=== PATIENT | male | born 1955 | race Caucasian/White ===

== ENCOUNTER 2016-11-07 16:35 | Emergency (ER) | payer OTHER ==
[~2016-11-07] VITALS: Ht 177.8 cm; Wt 65.8 kg
[~2016-11-07 16:35] MED LIST: BENTYL 20 MG TA20 MG PO; CHANTIX 1 MG1 MG PO; DILAUDID2 MG PO; FIORICET 325 MG1 TAB PO; FOLIC ACID 1 MG PO; LEVSIN/SL0.125 MG SL; NORCO 325 MG-51 TAB PO; NORVASC 10MG10 MG PO; PROTONIX 40MG T40 MG PO; TOPROL XL25 MG PO; TYLENOL TAB 32325 MG PO; TYLENOL XSTR500 MG PO; Theragran Vitamins PO; VICODIN 500 MG-1 TAB PO; VITAMIN B1100 MG PO; ZOFRAN 4 MG TABL4 MG PO; ZOFRAN ODT4 MG PO; ZOFRAN4 M1 SL
--- NOTE | 2016-11-07 16:53 | ED GI/GU/ABDOMINAL COMPLAINT ---
See Addendum History of Present Illness General Chief Complaint: Abdominal Pain/Flank Pain Stated Complaint: ABD PAIN, +N/V, CHILLS Source: patient Exam Limitations: no limitations Vital Signs & Intake/Output Vital Signs & Intake/Output Vital Signs Date Time Temp Pulse Resp B/P Pulse O2 O2 Flow FiO2 Ox Delivery Rate 11/08 1927 98.7 84 18 120/84 97 Room Air 11/07 1638 98.5 64 18 185/95 100 Room Air Allergies Coded Allergies: NO KNOWN ALLERGIES (05/20/11) Reconcile Medications Hydrocodone/Acetaminophen (Hydrocodon-Acetaminophen 5-325) 5 MG-325 MG TABLET 1-2 TAB PO Q4-6 PRN PRN pain Ondansetron (Zofran Odt) 4 MG TAB.RAPDIS 1 TAB SL TID PRN nausea and vomiting Tramadol HCl 50 MG TABLET 1 TAB PO BIDP PRN pain Triage Note: 61 YEAR OLD MALE HISTORY OF CELIAC AND DIVERTICULITIS STATES THAT HE WOKE THIS AM WITH N/V/D AND EXTREME ABD PAIN, PAIN IS MID ABD. HAS NOT HAD N/V/D SINCE THIS AM , BUT STATES THAT THERE WAS BLOOD IN STOOL THIS AM Triage Nurses Notes Reviewed? yes HPI: This patient is a 61-year-old male with a past medical history including celiac disease who presented to the emergency department with his for evaluation of abdominal pain. The patient reported that around 9:30 this morning he began developing mid lower abdominal pain which gets up to 9 out of 10, is constant, and nonradiating. The pain has no provoking or palliative factors. He vomited "many times" today. He reported 2 episodes of diarrhea with blood in the stool. He reported associated nausea. He denied any fevers, chills, chest pain or breathing, back pain, or any urinary burning, urgency, frequency, or blood in the urine. (MARTELL DHALIWAL,AGNES) Past History Travel History Traveled to [place] past 21 day No Medical History Any Pertinent Medical History? 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 No (AGNES MOURA PA-C) Review of Systems Review of Systems Constitutional: Reports: no symptoms. EENTM: Reports: no symptoms. Respiratory: Reports: no symptoms. Cardiovascular: Reports: no symptoms. GI: Reports: see HPI. Genitourinary: Reports: no symptoms. Musculoskeletal: Reports: no symptoms. Skin: Reports: no symptoms. Neurological/Psychological: Reports: no symptoms. All Other Systems: Reviewed and Negative (AGNES MOURA PA-C) Physical Exam Physical Exam Gastrointestinal: normal bowel sounds, soft, no organomegaly, tenderness to palpation in the lower quadrants. No rebound or guarding. No McBurney's point tenderness. Negative Rovsing sign. Negative psoas sign. Negative Arcos sign. No masses appreciated and nondistended Comments: Well-developed well-nourished person in mild distress HEENT: Normal EENT exam, head normocephalic/atraumatic Pupils equally round and reactive to light. Neck: Supple, no lymphadenopathy Back: Normal inspection Cardiovascular: Regular rate and rhythm no murmurs, rubs or gallops Respiratory: No respiratory distress. Breath sounds clear to auscultation bilaterally Extremity: Normal and equal pulses Neuro: Alert oriented x3, cranial nerves II through XII grossly intact. Skin: No appreciable rash on exposed skin, skin is warm and dry. Psych: Mood and affect is normal Core Measures ACS in differential dx? No Severe Sepsis Present: No Septic Shock Present: No (AGNES MOURA PA-C) Progress Differential Diagnosis: AAA, AMI, appendicitis, biliary colic, bowel obstruction , colon cancer, cholecystitis, diverticulitis, gastritis, hepatitis, ischemic bowel, inflamm bowel dis, pancreatitis, PUD/GERD, perforated viscous, pyelonephritis, STD, ureterolithiasis, urinary retention, urethritis, UTI/pyelo Plan of Care: Orders Procedure Date/time Status LIPASE 11/07 1647 Complete DIRECT BILIRUBIN 11/07 1647 Complete AMYLASE 11/07 1647 Complete LACTIC ACID 11/07 1638 Complete COMPREHENSIVE METABOLIC PANEL 11/07 1638 Complete CBC WITHOUT DIFFERENTIAL 11/07 1638 Complete Laboratory Tests 11/07/16 1938: Lactic Acid Cancelled 11/07/16 1652: Direct Bilirubin Cancelled, Amylase Cancelled, Lipase Cancelled 11/07/16 1647: Anion Gap 13, Estimated GFR > 60, BUN/Creatinine Ratio 18.3, Glucose 140 H, Lactic Acid 1.8, Calcium 10.2, Total Bilirubin 1.1, Direct Bilirubin 0.4, AST 20 , ALT 35, Alkaline Phosphatase 100, Total Protein 7.5, Albumin 4.4, Globulin 3.1 , Albumin/Globulin Ratio 1.4, Amylase < 30 L, Lipase 22 L, CBC w Diff MAN DIFF ORDERED, RBC 4.59 L, MCV 93.8, MCH 31.9 H, RDW 13.2, MPV 8.4, Gran % 91.9 H, Lymphocytes % 6.0 L, Monocytes % 1.8, Eosinophils % 0.1, Basophils % 0.2, Absolute Granulocytes 12.1 H, Absolute Lymphocytes 0.8 L, Absolute Monocytes 0.2, Absolute Eosinophils 0, Absolute Basophils 0, Platelet Estimate ADEQUATE, Normocytic RBCs VERIFIED, Normochromic RBCs VERIFIED, PUBS MCHC 34.0 Diagnostic Imaging: Viewed by Me: CT Scan. Discussed w/RAD: CT Scan. Radiology Impression: PATIENT: SHANIA HUNT PRESENT AGE: 61 PATIENT ACCOUNT NO: [id number] : 55 LOCATION: [facility] ORDERING PHYSICIAN: AGNES MOURA PA-C SERVICE DATE: 11/07/16 EXAM TYPE: CAT - CT ABD & PELVIS W IV CONTRAST EXAMINATION: CT ABDOMEN AND PELVIS WITH CONTRAST CLINICAL INFORMATION: Abdominal pain. COMPARISON: None. TECHNIQUE: Contiguous axial thin section helical images of the abdomen and pelvis were performed following the administration of 95 mL of intravenous Optiray 320. The data set was reformatted in the coronal and sagittal planes and reviewed on an independent workstation. DLP: 253 mGy-cm. FINDINGS: The visualized lung bases are clear. The visualized portions of the heart are unremarkable. There is a small hiatal hernia. The liver is of normal size and attenuation without focal lesions nor intrahepatic biliary ductal dilation. A normal gallbladder is identified. There is no wall thickening or discernible pericholecystic fluid. The spleen, pancreas, adrenal glands are unremarkable. Both kidneys are of normal size and attenuation without hydronephrosis or nephrolithiasis. Following the administration of IV contrast, prompt symmetric nephrograms are displayed. There is no abdominal free fluid. There is neither mesenteric nor retroperitoneal lymphadenopathy. There is sigmoid diverticulosis without evidence of diverticulitis. Otherwise, unremarkable unopacified loops of small and large bowel are identified. A normal appendix is identified. There is no pelvic free fluid. The urinary bladder is unremarkable. There is neither pelvic nor inguinal lymphadenopathy. There is a fat-containing left inguinal hernia. Bone windows: Neither sclerotic nor lytic bone lesions are identified. There is disc height loss at L4/L5 with adjacent sclerotic change. IMPRESSION: Sigmoid diverticulosis without evidence of diverticulitis. Normal appendix. Small hiatal hernia. DICTATED BY: JAVAN VIVEROS MD DATE/TIME DICTATED:11/07/161832 FURNITURE UPHOLSTERY MECHANIC:ALON DATE/TIME TRANSCRIBED:11/07/161832 CONFIDENTIAL, DO NOT COPY WITHOUT APPROPRIATE AUTHORIZATION. <Electronically signed in Other Vendor System> SIGNED BY: JAVAN VIVEROS MD 11/07/161840 Initial ED EKG: none Hand-Off Endorsed To: CHIKA LEVIN Endorsed Time: 1948 Pending: other Comments: 11/07/2016 5:55:39 PM: I was at the patient's bedside for reevaluation. He reported the pain is mildly better, but still persistent. Will obtain a CT of the abdomen and pelvis with IV contrast. (AGNES MOURA PA-C) Departure Departure Disposition: HOME OR SELF CARE Condition: Stable Clinical Impression Primary Impression: Abdominal pain Qualifiers: Abdominal location: lower abdomen, unspecified Qualified Code: R10.30 - Lower abdominal pain, unspecified Referrals: EDER BAIRES,THELMA FERNANDEZ APRN (PCP/Family) Additional Instructions: Please take medication for pain as prescribed. Take medication for nausea as prescribed. Call your dining room host or the dining room host whose information has been provided to you in this packet for further evaluation as you may need a colonoscopy performed. Please return to the emergency department immediately for any worsening symptoms or concerns. Departure Forms: Customer Survey General Discharge Information Prescriptions: Current Visit Scripts Tramadol HCl 1 TAB PO BIDP PRN pain #10 TAB Ondansetron (Zofran Odt) 1 TAB SL TID PRN nausea and vomiting #10 TAB (MARTELL DHALIWAL,AGNES) PA/BAND MACHINE OPERATOR Co-Sign Statement Statement: ED Attending supervision documentation- [] I saw and evaluated the patient. I have also reviewed all the pertinent lab results and diagnostic results. I agree with the findings and the plan of care as documented in the PA's/BAND MACHINE OPERATOR's documentation. [X] I have reviewed the ED Record and agree with the PA's/BAND MACHINE OPERATOR's documentation. [] Additions or exceptions (if any) to the PAs/BAND MACHINE OPERATOR's note and plan are summarized below: [] (JOSE BAIRES,LIEN)
[2016-11-07 17:10] LABS: ABSOLUTE BASOPHIL COUNT 0 /CUMM (0.0-0.2); ABSOLUTE EOSINOPHIL COUNT 0 /CUMM (0.0-0.7); ABSOLUTE GRANULOCYTE CT 12.1 /CUMM (1.4-6.5); ABSOLUTE LYMPH COUNT 0.8 /CUMM (1.2-3.4); ABSOLUTE MONOCYTE COUNT 0.2 /CUMM (0.10-0.60); BASOPHIL % 0.2 % (0.0-2.0); EOSINOPHIL % 0.1 % (0-5); GRANULOCYTE % 91.9 % (42.2-75.2); MEAN CORPUSCULAR HGB 31.9 PG (27.0-31.0); MEAN CORPUSCULAR VOLUME 93.8 FL (80.0-94.0); MEAN PLATELET VOLUME 8.4 FL (7.4-10.4); PLATELET COUNT 236 /CUMM (130-400); RBC DISTRIBUTION WIDTH 13.2 % (11.5-14.5); RED BLOOD CELL CT 4.59 /CUMM (4.70-6.10); WHITE BLOOD CELL COUNT 13.1 /CUMM (4.8-10.8)
--- NOTE | 2016-11-07 18:41 | CT SCAN REPORT ---
EXAMINATION: CT ABDOMEN AND PELVIS WITH CONTRAST CLINICAL INFORMATION: Abdominal pain. COMPARISON: None. TECHNIQUE: Contiguous axial thin section helical images of the abdomen and pelvis were performed following the administration of 95 mL of intravenous Optiray 320. The data set was reformatted in the coronal and sagittal planes and reviewed on an independent workstation. DLP: 253 mGy-cm. FINDINGS: The visualized lung bases are clear. The visualized portions of the heart are unremarkable. There is a small hiatal hernia. The liver is of normal size and attenuation without focal lesions nor intrahepatic biliary ductal dilation. A normal gallbladder is identified. There is no wall thickening or discernible pericholecystic fluid. The spleen, pancreas, adrenal glands are unremarkable. Both kidneys are of normal size and attenuation without hydronephrosis or nephrolithiasis. Following the administration of IV contrast, prompt symmetric nephrograms are displayed. There is no abdominal free fluid. There is neither mesenteric nor retroperitoneal lymphadenopathy. There is sigmoid diverticulosis without evidence of diverticulitis. Otherwise, unremarkable unopacified loops of small and large bowel are identified. A normal appendix is identified. There is no pelvic free fluid. The urinary bladder is unremarkable. There is neither pelvic nor inguinal lymphadenopathy. There is a fat-containing left inguinal hernia. Bone windows: Neither sclerotic nor lytic bone lesions are identified. There is disc height loss at L4/L5 with adjacent sclerotic change. IMPRESSION: Sigmoid diverticulosis without evidence of diverticulitis. Normal appendix. Small hiatal hernia.
[2016-11-07] MEDS ORDERED: TRAMADOL HCL50 M1 PO (19:21)
[2016-11-07] MEDS ORDERED: ZOFRAN ODT4 M1 SL (19:21)
[2016-11-07 21:51] VITALS: BP 124/86
[2016-11-08] MEDS ORDERED: HYDROCODON-ACE1 EAC2 PO (19:31)
== END 2016-11-07 19:30 ==
LOC: ERH 16:35
PROVIDERS: Emergency Medicine
DX: R10.30 Lower abdominal pain, unspecified (principal)
CPT/HCPCS: 74177; 96374; 96375; 96376; J2405

== ENCOUNTER 2016-11-08 16:34 | Emergency (ER) | payer OTHER ==
[~2016-11-08] VITALS: Ht 177.8 cm; Wt 65.8 kg
[~2016-11-08 16:34] MED LIST changes: +TRAMADOL HCL50 M1 PO; +ZOFRAN ODT4 M1 SL
[2016-11-08 17:54] LABS: ABSOLUTE BASOPHIL COUNT 0.1 /CUMM (0.0-0.2); ABSOLUTE EOSINOPHIL COUNT 0 /CUMM (0.0-0.7); ABSOLUTE GRANULOCYTE CT 11.6 /CUMM (1.4-6.5); ABSOLUTE LYMPH COUNT 1.1 /CUMM (1.2-3.4); BASOPHIL % 0.5 % (0.0-2.0); EOSINOPHIL % 0 % (0-5); GRANULOCYTE % 84.1 % (42.2-75.2); HEMATOCRIT 45.4 % (42-52); MEAN CORPUSCULAR HGB 31.7 PG (27.0-31.0); MEAN CORPUSCULAR VOLUME 93.3 FL (80.0-94.0); MEAN PLATELET VOLUME 7.8 FL (7.4-10.4); PLATELET COUNT 262 /CUMM (130-400); RBC DISTRIBUTION WIDTH 12.8 % (11.5-14.5); RED BLOOD CELL CT 4.86 /CUMM (4.70-6.10); WHITE BLOOD CELL COUNT 13.7 /CUMM (4.8-10.8)
--- NOTE | 2016-11-08 18:57 | CT SCAN REPORT ---
EXAMINATION: CT HEAD WITHOUT CONTRAST CLINICAL INFORMATION: Headache. COMPARISON: CT head 10/31/2015. TECHNIQUE: Contiguous axial imaging was performed from the skull base to vertex without intravenous administration of contrast. DLP: 600.71 mGy-cm FINDINGS: There is no acute intracranial hemorrhage or abnormal extra-axial collection. No intracranial mass effect or midline shift. Lateral and third ventricles are normal. No hydrocephalus. Armendariz-white matter differentiation is grossly preserved and there is no evidence of acute territorial infarct. The calvarium and skull base are intact. Mastoid air cells and middle ear cavities are well aerated. There is a mucous retention cyst within the sphenoid sinus. The remainder of the visualized paranasal sinuses are well-aerated. IMPRESSION: Unremarkable CT scan of the head with no evidence of acute intracranial hemorrhage.
[2016-11-08] MEDS ORDERED: HYDROCODON-ACE1 EAC2 PO (19:31)
--- NOTE | 2016-11-08 19:32 | ED GENERAL ADULT ---
History of Present Illness General Chief Complaint: Headache Stated Complaint: PT IS HAVING HEADACHES AND FEVERS Source: patient, family, old records Exam Limitations: no limitations Vital Signs & Intake/Output Vital Signs & Intake/Output Vital Signs Date Time Temp Pulse Resp B/P Pulse O2 O2 Flow FiO2 Ox Delivery Rate 11/08 2038 98.5 80 20 136/80 11/08 1827 80 174/84 11/08 1638 98.5 205 16 99 Room Air ED Intake and Output 11/09 0000 11/08 1200 Intake Total 1000 Output Total Balance 1000 Intake, IV 1000 Patient 145 lb Weight Allergies Coded Allergies: NO KNOWN ALLERGIES (05/20/11) Reconcile Medications Hydrocodone/Acetaminophen (Hydrocodon-Acetaminophen 5-325) 5 MG-325 MG TABLET 1-2 TAB PO Q4-6 PRN PRN pain Ondansetron (Zofran Odt) 4 MG TAB.RAPDIS 1 TAB SL TID PRN nausea and vomiting Tramadol HCl 50 MG TABLET 1 TAB PO BIDP PRN pain Triage Note: PT WAS SEEN YESTERDAY WITH ABD PAIN AND CRAMPING. PT IS HERE TODAY WITH RAMÍREZ AND FEVER. PT TOOK TRAMADOL THIS AM FOR GI PROBLEMS BUT DID NOT HAVE ANY BUT STATES HE HAS A VERY BAD RAMÍREZ Triage Nurses Notes Reviewed? yes Onset: Abrupt Duration: day(s):, constant Timing: recent history Severity: mild, moderate No Modifying Factors: none HPI: 61-year-old male that was seen here yesterday for nausea vomiting and abdominal pain and had a normal CAT scan comes into the emergency room with complaints of headache today. Patient reports the abdominal pain has improved. Some slight nausea. Patient has been sick with associated fever chills and body aches. Today's primary complaint is headache. He denies any slurring of words confusion. Denies any chest pain or shortness of breath. Headache is frontal over the sinus. Nothing seems to make the symptoms better or worse. Gradual headache. Not sudden onset. (CHIKA LEVIN) Past History Travel History Traveled to [place] past 21 day No Medical History Any Pertinent Medical History? 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 No (CHIKA LEVIN) Review of Systems Review of Systems Constitutional: Reports: no symptoms. EENTM: Reports: no symptoms. Respiratory: Reports: no symptoms. Cardiovascular: Reports: no symptoms. GI: Reports: see HPI. Genitourinary: Reports: no symptoms. Musculoskeletal: Reports: no symptoms. Skin: Reports: no symptoms. Neurological/Psychological: Reports: see HPI. Hematologic/Endocrine: Reports: no symptoms. Immunologic/Allergic: Reports: no symptoms. All Other Systems: Reviewed and Negative (CHIKA LEVIN) Physical Exam Physical Exam General Appearance: well developed/nourished, no apparent distress, alert Head: atraumatic, normal appearance Eyes: Bilateral: normal appearance, EOMI. Ears, Nose, Throat: normal pharynx, normal ENT inspection, hearing grossly normal Neck: normal inspection, full range of motion Respiratory: normal breath sounds, no respiratory distress Cardiovascular: regular rate/rhythm Back: normal inspection Extremities: normal inspection, normal range of motion Neurologic/Psych: awake, alert, oriented x 3, normal gait, normal mood/affect Skin: intact, normal color Core Measures ACS in differential dx? Yes CVA/TIA Diagnosis: No Severe Sepsis Present: No Septic Shock Present: No (CHIKA LEVIN) Progress Differential Diagnoses I considered the following diagnoses in my evaluation of the patient: Intracranial bleed, tension headache, sinusitis, migraine headache, CVA, [place], Plan of Care: Orders Procedure Date/time Status Add-on Test (ER Only) 11/08 1932 Active Add-on Test (ER Only) 11/08 1920 Active EKG 11/08 1920 Active CULTURE,URINE 11/08 185 Active Add-on Test (ER Only) 11/08 175 Active RAPID VIRAL INFLUENZA A 11/08 1757 Active URINALYSIS 11/08 175 Complete TROPONIN LEVEL 11/08 1745 Complete LIPASE 11/08 174 Complete C-REACTIVE PROTEIN 11/08 1744 Complete AMYLASE 11/08 1744 Complete COMPREHENSIVE METABOLIC PANEL 11/08 1712 Complete CBC WITHOUT DIFFERENTIAL 11/08 1712 Complete Laboratory Tests 11/08/161856: Urine Color YEL, Urine Clarity CLEAR, Urine pH 7.0, Ur Specific [place] 1.020, Urine Protein 30 H, Urine Ketones 40 H, Urine Nitrite NEG, Urine Bilirubin NEG , Urine Urobilinogen 0.2, Ur Leukocyte Esterase NEG, Ur Microscopic SEDIMENT EXAMINED, Urine RBC >75 H, Urine WBC 10-15 H, Ur Epithelial Cells FEW, Urine Bacteria FEW H, Urine Mucus FEW, Urine Hemoglobin SMALL H, Urine Glucose NEG 11/08/161744: Anion Gap 10, Estimated GFR > 60, BUN/Creatinine Ratio 18.0, Glucose 111 H, Calcium 10.1, Total Bilirubin 1.3, AST 22, ALT 33, Alkaline Phosphatase 96, Troponin I 0.05, C-Reactive Prot, Quant < 0.5, Total Protein 7.7, Albumin 4.6, Globulin 3.1, Albumin/Globulin Ratio 1.5, Amylase 66, Lipase 155, CBC w Diff NO MAN DIFF REQ, RBC 4.86, MCV 93.3, MCH 31.7 H, RDW 12.8, MPV 7.8, Gran % 84.1 H , Lymphocytes % 8.3 L, Monocytes % 7.1, Eosinophils % 0, Basophils % 0.5, Absolute Granulocytes 11.6 H, Absolute Lymphocytes 1.1 L, Absolute Monocytes 1.0 H, Absolute Eosinophils 0, Absolute Basophils 0.1, PUBS MCHC 34.0 Microbiology 11/08 1856 URINE ROUT: Urine Culture - RECD 11/08 1810 NASOPHARYN: Influenza Virus A & B Rapid Smear - ORD Diagnostic Imaging: Viewed by Me: CT Scan. Discussed w/RAD: CT Scan. Radiology Impression: SERVICE DATE: 11/08/16 EXAM TYPE: CAT - CT HEAD WO IV CONTRAST EXAMINATION: CT HEAD WITHOUT CONTRAST CLINICAL INFORMATION: Headache. COMPARISON: CT head 10/31/2015. TECHNIQUE: Contiguous axial imaging was performed from the skull base to vertex without intravenous administration of contrast. DLP: 600.71 mGy-cm FINDINGS: There is no acute intracranial hemorrhage or abnormal extra-axial collection. No intracranial mass effect or midline shift. Lateral and third ventricles are normal. No hydrocephalus. Armendariz- white matter differentiation is grossly preserved and there is no evidence of acute territorial infarct. The calvarium and skull base are intact. Mastoid air cells and middle ear cavities are well aerated. There is a mucous retention cyst within the sphenoid sinus. The remainder of the visualized paranasal sinuses are well-aerated. IMPRESSION: Unremarkable CT scan of the head with no evidence of acute intracranial hemorrhage. DICTATED BY: MIREYA BAIRES,BINH Miguel DATE/TIME DICTATED:11/08/161851 Initial ED EKG: normal intervals, normal p-waves, normal sinus rhythm, rate (83) (GEETHA WATTS,CHIKA) Departure Departure Disposition: HOME OR SELF CARE Condition: Stable Clinical Impression Primary Impression: Headache Referrals: THELMA LOW APRN (PCP/Family) CLARENCE QUINN MD Additional Instructions: Take Vicodin as prescribed. Follow[facility]up with [facility] practice. Return if any concerns worsening symptoms. Please go over all results of today's visit with your primary care doctor. Contact your primary care doctor to let them know you were here in the emergency room. There may be nonspecific findings which may not be related to your visit today here in the emergency room but may require further evaluation and chronic monitoring by your primary care doctor. If you had a laceration today the chance of foreign body always remains. You should follow-up with your primary care doctor for recheck in 3-5 days for a wound check. If you had an x-ray done there is a chance that a fracture could have been missed on initial read and you should follow-up with your primary care doctor for repeat x-rays if symptoms persist. If your blood pressure was elevated here in the emergency room please have rechecked by her primary care doctor within the next 48 hours by your primary care doctor. If you were prescribed a narcotic here in the emergency room or any type of controlled substances you're not allowed to drive while taking this medication or operate any type of heavy machinery. Narcotics can make you feel lightheaded dizziness nausea and can cause constipation. 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 Thank you for choosing [facility] emergency room. Please return to the emergency room immediately if you have any other concerns worsening of symptoms. Departure Forms: Customer Survey General Discharge Information Prescriptions: Current Visit Scripts Hydrocodone/Acetaminophen (Hydrocodon-Acetaminophen 5-325) 1-2 TAB PO Q4-6 PRN PRN pain #15 TAB Comments 11/08/2016 11:22:49 PM Patient feels significantly better after IV medications. Patient reports is the best sees [place] . At this time patient will be discharged with follow-up with primary care doctor. CT scan negative. Neurologically intact. No concern for meningitis. No signs of stroke. No evidence of intracranial bleed. Symptoms all along with likely some type of viral illness of some sort. (CHIKA LEVIN) PA/HERITAGE CONSULTANT Co-Sign Statement Statement: ED Attending supervision documentation- x I saw and evaluated the patient. I have also reviewed all the pertinent lab results and diagnostic results. I agree with the findings and the plan of care as documented in the PA's/HERITAGE CONSULTANT's documentation. [] I have reviewed the ED Record and agree with the PA's/HERITAGE CONSULTANT's documentation. [] Additions or exceptions (if any) to the PAs/HERITAGE CONSULTANT's note and plan are summarized below: [] (SHIRA BAIRES,ASHISH) Critical Care Note Critical Care Note Critical Care Time: non-applicable (CHIKA LEVIN)
[2016-11-08 20:39] VITALS: BP 136/80
== END 2016-11-08 20:41 ==
LOC: ERH 16:34
PROVIDERS: Emergency Medicine
DX: R51 Headache (principal); R11.0 Nausea
CPT/HCPCS: 81001; 87086; 87804; 87804-59; 93005; 93010; 96361; 96374; 96375; J1885; J2405

== ENCOUNTER 2017-01-31 10:11 | Emergency (ER) | payer OTHER ==
[~2017-01-31] VITALS: Ht 177.8 cm; Wt 59.4 kg
[~2017-01-31 10:11] MED LIST changes: +HYDROCODON-ACE1 EAC2 PO
--- NOTE | 2017-01-31 10:54 | ED GI/GU/ABDOMINAL COMPLAINT ---
History of Present Illness General Chief Complaint: Nausea, Vomiting, Diarrhea Stated Complaint: ? DEHYDRATION/CELIAC Source: patient Exam Limitations: no limitations Vital Signs & Intake/Output Vital Signs & Intake/Output Vital Signs Date Time Temp Pulse Resp B/P B/P Pulse O2 O2 Flow FiO2 Mean Ox Delivery Rate 01/31 1433 97.6 81 18 172/80 99 Room Air 01/31 1227 98.0 78 20 137/76 100 Room Air 01/31 1017 98.1 101 20 121/84 98 Room Air Allergies Coded Allergies: NO KNOWN ALLERGIES (05/20/11) Reconcile Medications Promethazine HCl 12.5 MG TABLET 1 TAB PO Q6-8 PRN NAUSEA Triage Note: C/O VOMITING AND DIARRHEA X [address] GARNER FOR RE-HYDRATION, HAD B/W DONE TODAY. ALSO C/O MID ABDOMINAL PAIN. PMH: CELIAC DISEASE. Triage Nurses Notes Reviewed? yes Onset: Gradual Duration: constant Timing: recent history Quality/Severity: cramping Severity Numbers: 3 Location: generalized abdomen Radiation: no radiation HPI: Patient is 61-year-old male with a past medical history of celiac disease who presents emergency room with concerns of a 6 day history of nausea vomiting diarrhea Patient does admit to 6 days ago of the evening Camel chocolate which obtains possible gluten where he has been complaining of persistent loose watery diarrhea production patient on the first 3-4 days had intermittent nausea and vomiting nonbloody nonbilious emesis however nausea and vomiting has resolved. Patient does admit to generalized abdominal cramping sensation. Patient can tolerate by mouth in the last 2-3 days. Denies any recent antibiotic use. Patient does admit to ibuprofen use after the symptoms began for abdominal pain. Denies any melena or bright red blood from bowel movements. Denies any significant alcohol use. Denies any fevers but does have chills. Patient was evaluated by counseling psychologist Dr. Garner today and which he gave a prescription for to patient where he administered 1 dose prior to arrival and he advised to have patient presents to emergency room (INGE STILL) Past History Travel History Traveled to [place] past 21 day No Medical History Any Pertinent Medical History? 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 No (INGE STILL) Review of Systems Review of Systems Constitutional: Reports: see HPI, chills. EENTM: Reports: no symptoms. Respiratory: Reports: no symptoms. Cardiovascular: Reports: no symptoms. GI: Reports: no symptoms, abdominal pain, diarrhea. Genitourinary: Reports: no symptoms. Musculoskeletal: Reports: no symptoms. Skin: Reports: no symptoms. Neurological/Psychological: Reports: no symptoms. Hematologic/Endocrine: Reports: no symptoms. Immunologic/Allergic: Reports: no symptoms. All Other Systems: Reviewed and Negative (INGE STILL) Physical Exam Physical Exam General Appearance: no apparent distress, comfortable Gastrointestinal: normal bowel sounds, soft, RIGHT LOWER QUADRANT AND LEFT LOWER QUADRANT POINT TENDERNESS NO RIGHT UPPER QUADRANT POINT TENDERNESS NO REBOUND TENDERNESS Comments: Well-developed well-nourished person in no acute distress HEENT: Normal EENT exam, Neck: Supple, no lymphadenopathy, normal range of motion without pain or tenderness Back: Nontender, no CVA tenderness. Cardiovascular: Regular rate and rhythms no murmurs rubs or gallops, normal JVP Respiratory: Chest nontender. No respiratory distress.breath sounds clear to auscultation bilaterally Extremity: No edema, no calf tenderness to palpation, normal and equal pulses. Neuro: Alert oriented x3, motor sensory normal, Skin: No appreciable rash on exposed skin, skin is warm and dry. Psych: Mood and affect is normal, memory and judgment is normal. Core Measures ACS in differential dx? No Severe Sepsis Present: No Septic Shock Present: No (INGE STILL) Progress Differential Diagnosis: AAA, AMI, appendicitis, biliary colic, bowel obstruction , colon cancer, cholecystitis, diverticulitis, epididymitis, esophageal varices, gastritis, hepatitis, hernia, hemorrhoids, ischemic bowel, inflamm bowel dis, orchitis, pancreatitis, prostatitis, peptic ulcer, PUD/GERD, perforated viscous, pyelonephritis, SBO, testicular torsion, ureterolithiasis, urinary retention, urethritis, UTI/pyelo Plan of Care: Orders Procedure Date/time Status CULTURE,STOOL 01/31 112 Active C.DIFFICILE 01/31 112 Active LIPASE 01/31 112 Complete COMPREHENSIVE METABOLIC PANEL 01/31 1128 Complete CBC WITHOUT DIFFERENTIAL 01/31 112 Complete AMYLASE 01/31 112 Complete Laboratory Tests 01/31/17 1146: Anion Gap 10, Estimated GFR > 60, BUN/Creatinine Ratio 36.7 H, Glucose 84, Calcium 9.6, Total Bilirubin 1.6 H, AST 18, ALT 30, Alkaline Phosphatase 72, Total Protein 7.0, Albumin 4.2, Globulin 2.8, Albumin/Globulin Ratio 1.5, Amylase 85, Lipase 258, CBC w Diff NO MAN DIFF REQ, RBC 4.94, MCV 92.9, MCH 31.4 H, RDW 12.5, MPV 8.1, Gran % 63.3, Lymphocytes % 25.1, Monocytes % 9.8 H, Eosinophils % 1.0, Basophils % 0.8, Absolute Granulocytes 5.8, Absolute Lymphocytes 2.3, Absolute Monocytes 0.9 H, Absolute Eosinophils 0.1, Absolute Basophils 0.1, PUBS MCHC 33.8 Microbiology 01/31 1129 STOOL: Clostridium difficile Toxin A & B - ORD 01/31 1129 STOOL: Stool Culture - ORD Patient currently is resting comfortably at bedside and denies any current nausea or vomiting symptoms for the past 3 days. Patient declined pain medications when offered CT scan was resulted showing no acute process. BLOOD work was unremarkable Dr. Garner was aware of patient's emergency room visit and advised patient to follow up in office on Saturday patient was able tolerate by mouth Upon discharge patient looks well no apparent distress and will comply with discharge instructions and had no questions (ELOISE WATTS,INGE) Diagnostic Imaging: Viewed by Me: CT Scan. Radiology Impression: no acute abnormality Initial ED EKG: none Comments: PATIENT: SHANIA HUNT PRESENT AGE: 61 PATIENT ACCOUNT NO: [id number] : 55 LOCATION: [facility] ORDERING PHYSICIAN: INGE WATTS SERVICE DATE: 01/31/17 EXAM TYPE: CAT - CT ABD & PELVIS W IV CONTRAST EXAMINATION: CT ABDOMEN AND PELVIS WITH CONTRAST CLINICAL INFORMATION: Left lower quadrant and right lower quadrant abdominal pain. COMPARISON: 11/07/2016 TECHNIQUE: Multidetector volumetric imaging was performed of the abdomen and pelvis before and after the IV administration of 95 mL of Optiray 320 intravenous contrast. Sagittal and coronal reformatted images were obtained on the technologist's workstation. DLP: 245 mGy-cm FINDINGS: LUNG BASES: The visualized lung bases are unremarkable. LIVER, GALLBLADDER, AND BILIARY TREE: The liver is normal in size, shape, and attenuation. No focal hepatic lesion or biliary ductal dilatation is present. The gallbladder is unremarkable with no evidence of radiopaque gallstones, gallbladder wall thickening, or obvious pericholecystic inflammatory changes. PANCREAS: Unremarkable. SPLEEN: Unremarkable. ADRENAL GLANDS: Unremarkable. KIDNEYS AND URETERS: The kidneys are normal in size, shape, and attenuation. No hydronephrosis, hydroureter, or calculi seen. No perinephric stranding. BLADDER: Unremarkable. GASTROINTESTINAL TRACT: The stomach and small bowel appear unremarkable. No dilated loops of bowel or evidence of obstruction. There is a normal appendix. There is prominent diverticulosis of the sigmoid colon. No definite evidence for diverticulitis. No free air or free fluid. ABDOMINAL WALL: No significant hernia is appreciated. LYMPH NODES: Normal. VASCULAR: Moderate atherosclerotic calcifications. PELVIC VISCERA: The prostate and seminal vesicles are unremarkable. OSSEOUS STRUCTURES: No acute or suspicious osseous abnormality. Disc space narrowing at L4-L5 with prominent endplate sclerosis and osteophyte formation. IMPRESSION: No acute inflammatory changes of the abdomen or pelvis. Prominent sigmoid diverticulosis without evidence for diverticulitis. Normal appendix. DICTATED BY: VENTURA GROVES MD DATE/TIME DICTATED:01/31/171415 SYSTEM SUPPORT SPECIALIST:ALON DATE/TIME TRANSCRIBED:01/31/171415 (INGE STILL) Departure Departure Disposition: HOME OR SELF CARE Condition: Stable Clinical Impression Primary Impression: Diarrhea Secondary Impressions: Colitis, Nausea & vomiting Referrals: CLARENCE QUINN MD (PCP/Family) MAKENNA GARNER MD Additional Instructions: As discussed begin a 48 hour clear liquids and bland diet to rest her bowels. Begin the prescription of Phenergan for nausea continue home medications as directed. Follow-up with your counseling psychologist Dr. Garner on Saturday for recheck of symptoms. If symptoms worsen return to the emergency room. The prescription is awaiting at [facility] Departure Forms: Customer Survey General Discharge Information Prescriptions: Current Visit Scripts Promethazine HCl 1 TAB PO Q6-8 PRN NAUSEA #12 TAB (INGE STILL) PA/BOOSTER OPERATOR Co-Sign Statement Statement: ED Attending supervision documentation- [X] I saw and evaluated the patient. I have also reviewed all the pertinent lab results and diagnostic results. I agree with the findings and the plan of care as documented in the PA's/BOOSTER OPERATOR's documentation. [X] I have reviewed the ED Record and agree with the PA's/BOOSTER OPERATOR's documentation. [] Additions or exceptions (if any) to the PAs/BOOSTER OPERATOR's note and plan are summarized below: [] (EVELINE BAIRES,ENRIKE Veronica)
[2017-01-31 12:07] LABS: ABSOLUTE BASOPHIL COUNT 0.1 /CUMM (0.0-0.2); ABSOLUTE EOSINOPHIL COUNT 0.1 /CUMM (0.0-0.7); ABSOLUTE GRANULOCYTE CT 5.8 /CUMM (1.4-6.5); ABSOLUTE LYMPH COUNT 2.3 /CUMM (1.2-3.4); ABSOLUTE MONOCYTE COUNT 0.9 /CUMM (0.10-0.60); BASOPHIL % 0.8 % (0.0-2.0); GRANULOCYTE % 63.3 % (42.2-75.2); HEMATOCRIT 45.9 % (42-52); MEAN CORPUSCULAR HGB 31.4 PG (27.0-31.0); MEAN CORPUSCULAR HGB CONC 33.8 G/DL (33.0-37.0); MEAN CORPUSCULAR VOLUME 92.9 FL (80.0-94.0); MEAN PLATELET VOLUME 8.1 FL (7.4-10.4); PLATELET COUNT 309 /CUMM (130-400); RBC DISTRIBUTION WIDTH 12.5 % (11.5-14.5); RED BLOOD CELL CT 4.94 /CUMM (4.70-6.10); WHITE BLOOD CELL COUNT 9.2 /CUMM (4.8-10.8)
--- NOTE | 2017-01-31 14:25 | CT SCAN REPORT ---
EXAMINATION: CT ABDOMEN AND PELVIS WITH CONTRAST CLINICAL INFORMATION: Left lower quadrant and right lower quadrant abdominal pain. COMPARISON: 11/07/2016 TECHNIQUE: Multidetector volumetric imaging was performed of the abdomen and pelvis before and after the IV administration of 95 mL of Optiray 320 intravenous contrast. Sagittal and coronal reformatted images were obtained on the technologist's workstation. DLP: 245 mGy-cm FINDINGS: LUNG BASES: The visualized lung bases are unremarkable. LIVER, GALLBLADDER, AND BILIARY TREE: The liver is normal in size, shape, and attenuation. No focal hepatic lesion or biliary ductal dilatation is present. The gallbladder is unremarkable with no evidence of radiopaque gallstones, gallbladder wall thickening, or obvious pericholecystic inflammatory changes. PANCREAS: Unremarkable. SPLEEN: Unremarkable. ADRENAL GLANDS: Unremarkable. KIDNEYS AND URETERS: The kidneys are normal in size, shape, and attenuation. No hydronephrosis, hydroureter, or calculi seen. No perinephric stranding. BLADDER: Unremarkable. GASTROINTESTINAL TRACT: The stomach and small bowel appear unremarkable. No dilated loops of bowel or evidence of obstruction. There is a normal appendix. There is prominent diverticulosis of the sigmoid colon. No definite evidence for diverticulitis. No free air or free fluid. ABDOMINAL WALL: No significant hernia is appreciated. LYMPH NODES: Normal. VASCULAR: Moderate atherosclerotic calcifications. PELVIC VISCERA: The prostate and seminal vesicles are unremarkable. OSSEOUS STRUCTURES: No acute or suspicious osseous abnormality. Disc space narrowing at L4-L5 with prominent endplate sclerosis and osteophyte formation. IMPRESSION: No acute inflammatory changes of the abdomen or pelvis. Prominent sigmoid diverticulosis without evidence for diverticulitis. Normal appendix.
[2017-01-31 14:33] VITALS: BP 172/80
[2017-01-31] MEDS ORDERED: PROMETHAZINE12.5 M2 PO (15:15)
== END 2017-01-31 15:28 ==
LOC: ERH 10:11
PROVIDERS: Physician Assistant
DX: K52.9 Noninfective gastroenteritis and colitis, unspecified (principal)
CPT/HCPCS: 74177; 87045; 96361; 96374; J2550

== ENCOUNTER 2017-12-16 18:44 | Emergency (ER) | payer OTHER ==
[~2017-12-16] VITALS: Ht 177.8 cm; Wt 65.8 kg
[~2017-12-16 18:44] MED LIST changes: +ASPIRIN81 M4 PO; +ATORVASTATIN CA40 M1 PO; +BENTYL10 M1 PO; +DOCUSATE SODIU100 M3 PO; +GABAPENTIN300 M2 PO; +MIRALAX17 G1 PO; +NORVASC2.5 M1 PO; +OMEPRAZOLE20 M2 PO; +OXYCODONE HCL5 M1 PO; +PERCOCET 5-3251 EACH PO; +PROMETHAZINE12.5 M2 PO; +Tylenol PO; +ZOFRAN4 M2 PO
--- NOTE | 2017-12-16 19:22 | ED CARDIAC/CP/PALPITATIONS ---
History of Present Illness General Chief Complaint: General Adult Stated Complaint: ABD PAIN, CHEST PAIN Source: patient, family, old records Exam Limitations: no limitations Allergies Coded Allergies: morphine (Severe, HEADACHE 07/19/17) Reconcile Medications Amlodipine (Norvasc) 2.5 MG TABLET 1 TAB PO DAILY BLOOD PRESSURE Aspirin (Aspirin*) 81 MG TAB.CHEW 1 TAB PO DAILY BABY ASPIRIN FOR HEART HEALTH Atorvastatin Calcium 40 MG TABLET 40 MG PO 1700 CHOLESTEROL Dicyclomine Hydrochloride (Bentyl) 10 MG CAPSULE 2 TAB PO 4 TIMES/DAY Abdominal spasm Docusate Sodium 100 MG CAPSULE 100 MG PO BID PRN CONSTIPATION Gabapentin 300 MG CAPSULE 1 TAB PO Q8 STOMACH NERVE PAIN Omeprazole 20 MG CAPSULE.DR 40 MG PO DAILY AC REFLUX Ondansetron HCl (Zofran) 4 MG TABLET 1 TAB PO Q6-8P NAUSEA Oxycodone HCl/Acetaminophen (Percocet 5-325 MG Tablet) 5 MG-325 MG TABLET 1 TAB PO 4 TIMES/DAY PRN SEVERE PAIN Oxycodone HCl/Acetaminophen (Percocet 5-325 MG Tablet) 5 MG-325 MG TABLET 1 TAB PO Q6P PRN SEVERE PAIN (7-10) Polyethylene Glycol 3350 (Miralax) 17 GRAM POWD.PACK 1 PAC PO DAILY PRN CONSTIPATION dissolve in water [Tylenol] TAB 325 MG PO Q6P PRN MILD - MOEDERATE PAIN Triage Note: PT TO ED C/O CHEST PAIN SINCE THIS AM. WAS IN BED WHEN IT STARTED, HAS GOTTEN WORSE THROUGH OUT THE DAY. ALSO C/O CHRONIC ABD PAIN. C/O NAUSEA, DENIES V/D. EKG DONE. Triage Nurses Notes Reviewed? yes Onset: Abrupt Duration: day(s): (1), constant Timing: recent history Quality/Severity: severe, stabbing Location: central Radiation: back (W COUGHING) Activities at Onset: none Prior Chest Pain/Card Workup: no prior chest pain Aspirin Today: no aspirin today Associated Symptoms: DENIES HPI: 62 year old male with past medical history significant for diverticulosis, celiac disease, Hep C hypertension and hyperlipidemia presents to the ER for evaluation complaining of central chest pain nonradiating continuous 10/10 sharp stabbing since this morning. Patient denies doing anything when the symptoms came on. He denies shortness of breath or pain with inspiration however states with coughing the pain radiates in his back. No arm or neck pain. The patient has been seen numerous times in the past for his chronic abdominal pain. He scheduled for a HIDA scan in 2 days. He states that he had an outpatient CAT scan of his chest performed last week for a lung nodule follow-up is scheduled to see cardiology Dr. Bronson for the first on but he is unsure of why. He denies having chest pain the past he was advised by his primary care physician to follow up with the environmental protection inspector however. No hemoptysis no sputum production. He reports to nausea however denies vomiting. No shortness of breath he is an active smoker denies alcohol use. (Jose Muñiz) Vital Signs & Intake/Output Vital Signs & Intake/Output Vital Signs Date Time Temp Pulse Resp B/P B/P Pulse O2 O2 Flow FiO2 Mean Ox Delivery Rate 12/16 2337 76 20 114/56 97 Room Air 12/16 2153 98.4 77 16 124/71 100 Room Air 12/16 2125 98.2 67 16 126/59 100 Room Air 12/16 2038 98.5 88 18 152/98 98 Room Air 12/16 2005 Room Air 12/16 1855 98.6 101 20 144/99 97 Room Air ED Intake and Output 12/17 0000 12/16 1200 Intake Total 1000 Output Total Balance 1000 Intake, IV 1000 Patient 145 lb Weight Weight Estimated Measurement Method (Jozef Eli) Past History Travel History Traveled to [place] past 21 day No Medical History Any Pertinent Medical History? see below for history Neurological: NONE EENT: NONE Cardiovascular: hypertension, hyperlipidemia, CHEST PAIN. 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 No (Jose Muñiz) Review of Systems Review of Systems Constitutional: Reports: see HPI. Comments Review of systems: See HPI, All other systems negative. Constitutional, no chills no fever, HEENT: no sore throat no congestion, no ear pain Cardiovascular: chest pain , no palpitation Skin: no rashes, no change in skin Respiratory: No dyspnea no cough no sputum no hemoptysis GI: nausea no vomiting, no diarrhea, : No dysuria Muscle skeletal: No joint pain, no back pain, no neck pain, Neurologic: , no headache Heme/endocrine: No bruising Immunology: No lymphadenopathy (Jose Muñiz) Physical Exam Physical Exam General Appearance: well developed/nourished, alert, awake Cardiovascular: tachycardia Comments: Well-developed well-nourished person in no acute distress HEENT: Normal EENT exam; PERRL, EOMI, HEAD is atraumatic. moist mucous membranes. Neck: Supple, normal range of motion Back: Nontender, no CVA tenderness. Full range of motion Cardiovascular: Tachycardic, regular rhythm, no murmur Respiratory: Chest nontender.There were no bony deformities, no asymmetry. No respiratory distress. Patient speaking in full complete sentences. Breath sounds clear to auscultation bilaterally: NO W/R/R Abdomen: Soft, nontender nondistended, no appreciable organomegaly. Normal bowel sounds. No rebound/guarding, No appreciable enlargement of the abdominal aorta, No ascites. Extremity: No edema, full range of motion of extremities Neuro: Alert oriented x3, motor sensory normal,There were no obvious focal neurologic abnormalities. Skin: No appreciable rash on exposed skin, skin is warm and dry. Psych: Mood and affect is normal, memory and judgment is normal. Core Measures ACS in differential dx? Yes CVA/TIA Diagnosis No Sepsis Present: No Sepsis Focused Exam Completed? No (Jose Muñiz) Progress Differential Diagnosis: AMI, aortic dissection, atrial fibrillation, cholecystitis, CHF/pulm edema, myocarditis, pancreatitis, pericarditis, pneumonia, pneumothorax, pulmonary embolism, PUD/GERD, PVCs/PACs, unstable angina Diagnostic Imaging: Viewed by Me: Radiology Read. Discussed w/RAD: Radiology Read. Initial ED EKG: normal intervals, normal p-waves, normal QRS complex, STACH AT 100 Prior EKG: unchanged Rhythm Strip: sinus tachycardia Hand-Off Endorsed To: Jozef Eli Endorsed Time: 2100 Pending: EKG, labs, Xray (Jose Muñiz) Plan of Care: Orders Procedure Date/time Status TROPONIN LEVEL 12/17 2239 Complete EKG 12/17 2239 Active Add-on Test (ER Only) 12/16 1950 Active D-DIMER 12/17 1939 Complete TROPONIN LEVEL 12/16 1920 Complete LIPASE 12/16 1920 Complete COMPREHENSIVE METABOLIC PANEL 12/16 1920 Complete CBC WITHOUT DIFFERENTIAL 12/16 1920 Complete EKG 12/16 184 Active Laboratory Tests 12/16/17 232: Troponin I 0.03 12/16/171939: Anion Gap 13, Estimated GFR > 60, BUN/Creatinine Ratio 18.0, Glucose 103 H, Calcium 9.5, Total Bilirubin 1.0, AST 15 L, ALT 21, Alkaline Phosphatase 104, Troponin I 0.03, Total Protein 7.3, Albumin 4.3, Globulin 3.0, Albumin/Globulin Ratio 1.4, Lipase 20 L, D-Dimer High Sensitivty < 200, CBC w Diff NO MAN DIFF REQ, RBC 4.52 L, MCV 90.5, MCH 30.6, MCHC 33.8, RDW 13.5, MPV 8.0, Gran % 82.6 H, Lymphocytes % 11.7 L, Monocytes % 5.3, Eosinophils % 0.2, Basophils % 0.2, Absolute Granulocytes 10.8 H, Absolute Lymphocytes 1.5, Absolute Monocytes 0.7 H, Absolute Eosinophils 0, Absolute Basophils 0 Labs ordered old records reviewed patient medicated with morphine IV fluids Zofran 4 IV x-ray ordered. Case discussed with Dr. Ventura agrees with plan 12/16/2017 8:49:52 PM case discussed with and signed out the STEFANIE Lyons pending repeat labs troponin x-ray results. (Jose Muñiz) Repeat EKG: unchanged Comments: 12/17/2017 12:11:32 AM Patient resting comfortably in room. No current symptoms. Patient will follow up as an outpatient. Second EKG unchanged. Troponin negative. (oJzef Eli) Departure Departure Disposition: HOME OR SELF CARE Condition: Stable Clinical Impression Primary Impression: Chest pain Secondary Impressions: Chronic abdominal pain Referrals: Audie BAIRES,Donato Mills MD,Wesley Miranda (PCP/Family) Additional Instructions: Follow-up with primary care physician tomorrow as well as environmental protection inspector Dr. Bronson as scheduled. Return anytime sooner with any concerns. Departure Forms: Customer Survey General Discharge Information (Jose Muñiz) PA/MARKETING DATABASE COORDINATOR Co-Sign Statement Statement: ED Attending supervision documentation- [X] I saw and evaluated the patient. I have also reviewed all the pertinent lab results and diagnostic results. I agree with the findings and the plan of care as documented in the PA's/MARKETING DATABASE COORDINATOR's documentation. X] I have reviewed the ED Record and agree with the PA's/MARKETING DATABASE COORDINATOR's documentation. [] Additions or exceptions (if any) to the PAs/MARKETING DATABASE COORDINATOR's note and plan are summarized below: [] (Lorenzo BAIRES,Wesley Veronica) Critical Care Note Critical Care Note Critical Care Time: non-applicable (Jose Muñiz)
[2017-12-16 19:52] LABS: ABSOLUTE BASOPHIL COUNT 0 /CUMM (0.0-0.2); ABSOLUTE EOSINOPHIL COUNT 0 /CUMM (0.0-0.7); ABSOLUTE GRANULOCYTE CT 10.8 /CUMM (1.4-6.5); ABSOLUTE LYMPH COUNT 1.5 /CUMM (1.2-3.4); ABSOLUTE MONOCYTE COUNT 0.7 /CUMM (0.10-0.60); BASOPHIL % 0.2 % (0.0-2.0); EOSINOPHIL % 0.2 % (0-5); GRANULOCYTE % 82.6 % (42.2-75.2); HEMATOCRIT 40.9 % (42-52); MEAN CORPUSCULAR HGB 30.6 PG (27.0-31.0); MEAN CORPUSCULAR HGB CONC 33.8 G/DL (33.0-37.0); MEAN CORPUSCULAR VOLUME 90.5 FL (80.0-94.0); PLATELET COUNT 333 /CUMM (130-400); RBC DISTRIBUTION WIDTH 13.5 % (11.5-14.5); RED BLOOD CELL CT 4.52 /CUMM (4.70-6.10); WHITE BLOOD CELL COUNT 13.1 /CUMM (4.8-10.8)
--- NOTE | 2017-12-16 21:04 | RADIOLOGY REPORT ---
EXAMINATION: XR PORTABLE CHEST CLINICAL INFORMATION: Chest pain radiating to the back. COMPARISON: Chest x-ray 04/08/2014 TECHNIQUE: Portable frontal view of the chest was obtained. 8:05 PM FINDINGS: Lungs are clear. No pulmonary vascular congestion. There is no pleural effusion. The heart size is normal. The cardiac and mediastinal contours are normal. There are calcifications of the thoracic aorta. No acute osseous abnormality. IMPRESSION: Unremarkable examination.
[2017-12-16 23:37] VITALS: BP 114/56
== END 2017-12-17 00:26 ==
LOC: ERH 18:44
PROVIDERS: Physician Assistant Medical
DX: R07.89 Other chest pain (principal); R10.9 Unspecified abdominal pain
CPT/HCPCS: 71045; 93005; 93010; 96374; 96375; 96376; J2405